=== PATIENT | female | born 1975 | race Caucasian/White ===

== ENCOUNTER 2024-09-25 12:04 | Emergency (ER) | payer OTHER ==
[2024-09-25] VITALS (21 sets, daily range): BP systolic 107–151; BP diastolic 54–77
[~2024-09-25] VITALS: Ht 170.2 cm; Wt 58.9 kg
[~2024-09-25 12:04] MED LIST: ALBUTEROL S2.5 MG/.5 IN; CARDIZEM60 MG PO; CHLORTHALIDONE25 MG PO; FLEXERIL10 MG PO; LISINOPRIL40 MG PO; LORTAB5 PO; MEDDOSEPAK PO; PENTOXIFYLLI400 MG PO; PERCOCET 5/325M1 TAB OR; PRILOSEC20 MG PO; ROBITUSSI8 OR; ULTRAM50 M1 PO; ULTRAM50 MG PO; ZANTAC150 MG OR; ZITHROMAX250 MG PO; ZPAK OR
[2024-09-25] MEDS ORDERED: SODIUM CHLORIDE 0.9% 1,000 ML IV ONE (12:35)
[2024-09-25 13:07] LABS: BASO% 0.7 % (0-3); EOS% 2.5 % (0-8); HEMOGLOBIN 12.1 g/dl (12.0-16.0); LYMPH% 18.1 % (15-41); MEAN CELL VOLUME 84.3 fL CALC (80.0-100.0); MEAN CORPUSCULAR HGB 24.3 pG CALC (26.0-32.0); MEAN CORPUSCULAR HGB CONC 28.8 g/dL CAL (32.0-36.0); MONO% 7.8 % (2-13); NEUT# 5.1 thou/uL (2.00-7.15); NEUT% 70.9 % (42-76); RED BLOOD COUNT 4.98 mill/uL (4.20-5.60); RED CELL DISTRI WIDTH 14.5 % (11.5-15.5)
[2024-09-25 13:41] LABS: ALBUMIN 3.8 g/dL (3.2-5.0); CREATININE 1.3 mg/dL (0.5-1.0); POTASSIUM 4.4 mmol/l (3.5-5.1); TOTAL PROTEIN 7.6 g/dL (6.3-8.2)
[2024-09-25 14:05] LABS: BILIRUBIN, TOTAL 0.6 mg/dL (0.02-1.3)
[2024-09-25] MEDS ORDERED: PANTOPRAZOLE SODIUM Sesquihydr 40 MG/TAB PO ONE (14:35)
[2024-09-25 15:29] LABS: URINE BILIRUBIN - DIPSTICK Negative (NEGATIVE); URINE BLOOD DIPSTICK Negative (NEGATIVE); URINE GLUCOSE - DIPSTICK Negative (NEGATIVE); URINE KETONE Negative (NEGATIVE); URINE LEUK ESTERASE Negative (NEGATIVE); URINE NITRITE - DIPSTICK Negative (Negative); URINE PH 5.5 (4.5-8.0); URINE PROTEIN - DIPSTICK Negative (NEG-TRACE); URINE UROBILINOGEN - DIPSTICK 0.2 E.U./dL (0.2)
[2024-09-25 15:30] LABS: URINE COLOR Yellow
[2024-09-25 15:34] LABS: URINE BACTERIA MANY hpf
[2024-09-25] MEDS ORDERED: Heparin SODIUM (Porcine) 500 ML IV ONE (16:00)
[2024-09-25] MEDS ORDERED: Heparin SODIUM (Porcine) 5,000 UNITS/ML SDV IV ONE (16:00)
[2024-09-25] MEDS ORDERED: ONDANSETRON HCl 4 MG/2 ML SDV IV ONE (19:35)
[2024-09-25] MEDS ORDERED: MORPHINE SULFATE 4 MG/ML VIAL IV ONE ×2 (19:35→20:30)
== END 2024-09-25 21:09 | DRG 301 ==
LOC: ED 12:04
PROVIDERS: Nurse Practitioner
PROC: 02HV33Z Insertion of Infusion Device into Superior Vena Cava, Percutaneous Approach (ICD-10-PCS; principal; 2024-09-25)
DX: I73.9 Peripheral vascular disease, unspecified (principal); I73.00 Raynaud's syndrome without gangrene; I10 Essential (primary) hypertension; I48.91 Unspecified atrial fibrillation
CPT/HCPCS: J1644; J2405